=== PATIENT | female | born 1990 | race Caucasian/White ===

== ENCOUNTER 2021-06-01 16:05 | Inpatient (IN) | payer BC ==
[2021-06-01] MEDS ORDERED: NICOTINE POLACRILEX 2 MG GUM BUC PRN (18:16)
[2021-06-01] MEDS ORDERED: IBUPROFEN 400 MG TABLET (FP) PO PRN (18:16)
[2021-06-01] MEDS ORDERED: MAGNESIUM HYDROX 2400MG/30ML ORAL SUSPENSION 30 ML CUP PO PRN (18:16)
[2021-06-01] MEDS ORDERED: ACETAMINOPHEN 325 MG TABLET (FP) PO PRN ×2 (18:16)
[2021-06-01] MEDS ORDERED: BISMUTH SUBSALICYLATE 524 MG/30 ML PO PRN (18:16)
[2021-06-01] MEDS ORDERED: MAG HYDROX/AL HYDROX/SIMETH 30 ML UNIT-DOSE CUP PO PRN (18:16)
[2021-06-01] MEDS ORDERED: ONDANSETRON *ODT* 4 MG TABLET SL PRN (18:16)
[2021-06-01] MEDS ORDERED: MAGNESIUM CITRATE 300 ML BOTTLE PO PRN (18:16)
[2021-06-01] MEDS ORDERED: MENTHOL/PHENOL 1 EACH UD MM PRN (18:16)
[2021-06-01] MEDS ORDERED: chlordiazePOXIDE HCL 25 MG CAPSULE PO PRN (18:18)
[2021-06-01] MEDS ORDERED: chlordiazePOXIDE HCL 25 MG CAPSULE ONE (20:48)
[2021-06-01] MEDS ORDERED: ONDANSETRON *ODT* 4 MG TABLET ONE (20:48)
[2021-06-01 22:44] VITALS: BMI 25.7
[2021-06-01] MEDS: MELATONIN 5 MG TABLETS PO SCH (22:49)
[2021-06-01] MEDS: THIAMINE HCL 100 MG TABLET (FP) PO SCH (22:50)
[2021-06-02] MEDS: hydrOXYzine PAMOATE 25 MG CAPSULE (FP) PO PRN ×3 (00:04→17:49)
[2021-06-02] MEDS: chlordiazePOXIDE HCL 25 MG CAPSULE PO SCH ×3 (00:04→10:08)
[2021-06-02] MEDS: METHOCARBAMOL 500 MG TABLET PO PRN ×2 (05:46→12:43)
[2021-06-02] MEDS: PRENATAL VITAMINS W/ FOLIC ACID TABLET (FP) PO SCH (10:08)
[2021-06-02 12:29] LABS: CALCIUM 8.6 mg/dL (8.5-10.1)
[2021-06-02 12:30] LABS: ALBUMIN 3.3 g/dl (3.4-5.0); BLOOD UREA NITROGEN 6.1 mg/dL (7-18)
[2021-06-02 12:33] LABS: CREATININE 0.4 mg/dL (0.55-1.3)
[2021-06-02 12:35] LABS: BILIRUBIN,TOTAL 2.1 mg/dL (0.2-1); HEMATOCRIT 37.7 % (32.4-45.2); HEMOGLOBIN 12.4 GM/dL (10.7-15.3); MCH 32.1 pg (25.7-33.7); MEAN CELL VOLUME 97.2 fl (80-96); MEAN PLT VOLUME 8.6 fl (7.5-11.1); PLATELET COUNT 137 10^3/uL (134-434); RBC 3.88 M/mm3 (3.60-5.2); TOT PROT 7.8 g/dl (6.4-8.2)
[2021-06-02] MEDS ORDERED: POTASSIUM CHLORIDE TABS 20 MEQ TABLET.ER (FP) PO ONE (13:49)
[2021-06-02] MEDS ORDERED: LORazepam 1 MG TABLET PO PRN (13:51)
[2021-06-02] MEDS: LORazepam 2 MG TABLET PO SCH ×2 (17:49→22:23)
[2021-06-02] MEDS: THIAMINE HCL 100 MG TABLET (FP) PO SCH (22:23)
[2021-06-02] MEDS: MELATONIN 5 MG TABLETS PO SCH (22:23)
[2021-06-03] MEDS ORDERED: chlordiazePOXIDE HCL 25 MG CAPSULE PO SCH (05:00)
[2021-06-03] MEDS: LORazepam 1 MG TABLET PO SCH ×4 (06:16→22:22)
[2021-06-03] MEDS: METHOCARBAMOL 500 MG TABLET PO PRN (10:44)
[2021-06-03] MEDS: PRENATAL VITAMINS W/ FOLIC ACID TABLET (FP) PO SCH (10:44)
[2021-06-03] MEDS: hydrOXYzine PAMOATE 25 MG CAPSULE (FP) PO PRN ×3 (10:44→22:24)
[2021-06-03 10:55] LABS: CALCIUM 9.8 mg/dL (8.5-10.1)
[2021-06-03 10:56] LABS: ALBUMIN 3.2 g/dl (3.4-5.0); BLOOD UREA NITROGEN 7.4 mg/dL (7-18)
[2021-06-03 10:58] LABS: BILIRUBIN,TOTAL 2.1 mg/dL (0.2-1); TOT PROT 8.4 g/dl (6.4-8.2)
[2021-06-03 11:00] LABS: CREATININE 0.5 mg/dL (0.55-1.3)
[2021-06-03] MEDS: MELATONIN 5 MG TABLETS PO SCH (22:22)
[2021-06-03] MEDS: THIAMINE HCL 100 MG TABLET (FP) PO SCH (22:22)
[2021-06-04] MEDS ORDERED: chlordiazePOXIDE HCL 10 MG CAPSULE PO PRN
[2021-06-04] MEDS ORDERED: chlordiazePOXIDE HCL 10 MG CAPSULE PO SCH (05:00)
[2021-06-04] MEDS: LORazepam 0.5 MG TABLET PO SCH ×4 (05:56→22:12)
[2021-06-04] MEDS: PRENATAL VITAMINS W/ FOLIC ACID TABLET (FP) PO SCH (10:35)
[2021-06-04] MEDS: METHOCARBAMOL 500 MG TABLET PO PRN (10:35)
[2021-06-04] MEDS: hydrOXYzine PAMOATE 25 MG CAPSULE (FP) PO PRN ×2 (10:35→22:13)
[2021-06-04] MEDS: THIAMINE HCL 100 MG TABLET (FP) PO SCH (22:12)
[2021-06-04] MEDS: MELATONIN 5 MG TABLETS PO SCH (22:12)
[2021-06-05] MEDS ORDERED: LORazepam 0.5 MG TABLET PO PRN
[2021-06-05] MEDS ORDERED: LORazepam 0.5 MG TABLET PO ONE (05:00)
[2021-06-05] MEDS ORDERED: chlordiazePOXIDE HCL 10 MG CAPSULE PO SCH (05:00)
[2021-06-05] MEDS: PRENATAL VITAMINS W/ FOLIC ACID TABLET (FP) PO SCH (10:32)
[2021-06-05 11:02] VITALS: BP 102/63; PULSE 68; TEMP 98.4
[2021-06-06] MEDS ORDERED: chlordiazePOXIDE HCL 10 MG CAPSULE PO ONE (05:00)
== END 2021-06-05 11:14 | disposition home or self-care (01) | DRG 775 ==
LOC: YASAS 16:05 → Y6N 22:33
PROVIDERS: ADMIT Allergy & Immunology; ATTEND Allergy & Immunology
PROC: HZ2ZZZZ Detoxification Services for Substance Abuse Treatment (ICD-10-PCS; principal; 2021-06-01)
DX: F10.230 Alcohol dependence with withdrawal, uncomplicated (principal); F17.210 Nicotine dependence, cigarettes, uncomplicated; F10.220 Alcohol dependence with intoxication, uncomplicated; E87.6 Hypokalemia; R74.8 Abnormal levels of other serum enzymes; Z88.8 Allergy status to other drugs, medicaments and biological substances
CPT/HCPCS: 36415; 80053; 81025; 85027; 86780; C9803; Q0162; U0003; U0005